=== PATIENT | male | born 1945 | race Caucasian/White ===

== ENCOUNTER 2017-06-20 13:36 | Outpatient (CLI) | payer OTHER, MEDICARE ==
[~2017-06-20] VITALS: Ht 182.9 cm; Wt 86.2 kg
[~2017-06-20 13:36] MED LIST: ACET-2267 PO; ASPI-586 PO; ATEN100T PO; ATOR80TA76 PO; CEPH-507 PO; CHOL400T29 PO; CYAN100088 PO; DIVA500T7 PO; DONE10TA41 PO; GABA-488 PO; HYDR-3870 PO; MEMA10TA22 PO; OMEP20CA12 PO; TERA5CAP3 PO
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
== END 2017-06-20 13:50 | disposition home or self-care (01) ==
LOC: PREOP 13:36
PROVIDERS: ATTEND Internal Medicine
DX: Z01.818 Encounter for other preprocedural examination (principal); R19.5 Other fecal abnormalities

== ENCOUNTER 2017-06-28 08:43 | Day surgery (SDC) | payer OTHER, MEDICARE ==
[~2017-06-28] VITALS: Ht 182.9 cm; Wt 86.2 kg
--- OUTSIDE RECORDS SUMMARY | 2017-06-28 08:47 | XMS REPORT ---
Author Author JUSTINO MELARA [facility] eClinicalWorks Address Unknown Phone Unavailable Care Team Providers Care Environmental Conservation Professor Name Role Phone JUSTINO MELARA CP Unavailable Allergies, Adverse Reactions, Alerts Substance Reaction Event Type N.K.D.A. Info Not Available Non Drug Allergy Problems Problem Type Condition Code Onset Dates Condition Status Problem Hypertension I10 Active Problem Dementia F03.90 Active Problem Hydrocele, unspecified hydrocele type N43.3 Active Problem Peripheral neuropathy G62.9 Active Assessment Hydrocele, unspecified hydrocele type N43.3 Active Medications Medication Code System Code Instructions Start Date End Date Status Dosage Cyanocobalamin [facility] [address]-28 1000 MCG Orally Once a day 1 tablet Vitamin D [facility] [address] 400 UNIT Orally Once a day 2 capsules Terazosin HCl [facility] [address]-76 5 MG Orally Once a day 1 capsule Donepezil Hydrochloride [facility] [address]-84 10 MG Orally Once a day 1 tablet at bedtime Atorvastatin Calcium [facility] [address]-27 80 MG Orally Once a day 1 tablet Atenolol [facility] [address]-93 100 MG Orally 2 times a day 1 tablet Memantine HCl [facility] [address]-51 10 MG Orally Twice a day 1 tablet Omeprazole Magnesium [facility] [address]10 20 MG Orally Once a day 2 tablets Gabapentin [facility] [address]-81 300 MG Orally Three times a day 1 capsule Aspir-81 [facility] [address]-68 81 MG Orally Once a day 1 tablet Divalproex Sodium ER [facility] [address]-79 500 MG Orally not defined Procedures Procedure Coding System Code Date Office Visit, Est Pt., Level 2 CPT-4 10930 Nov 04, 2015 Vital Signs Date/Time: Nov 04, 2015 Cardiac Monitoring Heart Rate 64 bpm Weight 171.0 lbs Height 71 in BMI 23.85 Index Blood Pressure Diastolic 65 mmHg Blood Pressure Systolic 126 mmHg Results No Known Results Summary Purpose eClinicalWorks Submission
--- OUTSIDE RECORDS SUMMARY | 2017-06-28 08:48 | XMS REPORT ---
Author Author JUSTINO MELARA [facility] Address [address] [place] [address] Care Team Providers Care Non Destructive Testing Scientist Name Role Phone JUSTINO MELARA Unavailable PROBLEMS Type Condition ICD9-CM Code ZYR29-NL Code Onset Dates Condition Status SNOMED Code Problem Hydrocele, unspecified hydrocele type N43.3 Active 34177639 Problem Hypertension I10 Active 91561956 Problem Dementia F03.90 Active 00271941 Problem Peripheral neuropathy G62.9 Active 97071221 ALLERGIES Substance Reaction Event Type Date Status N.K.D.A. Unknown Non Drug Allergy Mar, Unknown SOCIAL HISTORY No smoking Hx information available PLAN OF CARE Activity Details Follow Up annually for preventive care, sooner for chronic health maintenance , prn Reason: VITAL SIGNS Height 71 in 2016-03-30 Weight 179 lbs 2016-03-30 Temperature 97.8 degrees Fahrenheit 2016-03-30 Heart Rate 58 bpm 2016-03-30 Respiratory Rate 16 2016-03-30 BMI 24.96 kg/m2 2016-03-30 Blood pressure systolic 108 mmHg 2016-03-30 Blood pressure diastolic 62 mmHg 2016-03-30 MEDICATIONS Medication Instructions Dosage Frequency Start Date End Date Duration Status Atorvastatin Calcium 80 MG Orally Once a day 1 tablet 24h Active Atenolol 100 MG Orally 2 times a day 1 tablet 12h Active Cyanocobalamin 1000 MCG Orally Once a day 1 tablet 24h Active Omeprazole Magnesium 20 MG Orally Once a day 2 tablets 24h Active Aspir-81 81 MG Orally Once a day 1 tablet 24h Active Vitamin D 400 UNIT Orally Once a day 2 capsules 24h Active Gabapentin 300 MG Orally Three times a day 1 capsule 8h Active Donepezil Hydrochloride 10 MG Orally Once a day 1 tablet at bedtime 24h Active Divalproex Sodium ER 500 MG Active Terazosin HCl 5 MG Orally Once a day 1 capsule 24h Active Memantine HCl 10 MG Orally Twice a day 1 tablet 12h Active RESULTS No Results PROCEDURES Procedure Date Ordered Related Diagnosis Body Site [facility] P[facility] PPS INIT Mar 30, 2016 FLUZONE HIGH DOSE 65 AND UP 2016 Mar 30, 2016 SINGLE IMMUNIZATION ADMIN Mar 30, 2016 TDAP (BOOSTRIX) Mar 30, 2016 IMMUNIZATION ADMIN, EACH ADD (please include units) Mar 30, 2016 IMMUNIZATIONS Vaccine Route Administration Date Status TDAP (BOOSTRIX) IM Intramuscular Mar 30, 2016 Administered FLUZONE HIGH DOSE 65 AND UP 2015 IM Intramuscular Mar 30, 2016 Administered
[2017-06-28] MEDS ORDERED: 1/2 NS IV SOLUTION 1,000 ML IV STA (08:55)
[2017-06-28] MEDS ORDERED: LIDOCAINE JELLY 2% (XYLOCAINE) 5 ML TUBE MM PRN (09:00)
[2017-06-28 09:09] VITALS: BP 122/72
--- NOTE | 2017-06-28 09:22 | Pre-Op Note & Conscious Sedat ---
Pre-Operative Progress Note H&P Reviewed The H&P was reviewed, patient examined and no changes noted. Date H&P Reviewed: Jun 28, 2017 Time H&P Reviewed: 09:22 Conscious Sedation Pre-Proced ASA Class: 2 Airway Mallampati Classification: (quileute appropriate class) I. II. III, IV Lungs Heart ASA score ASA 1: a normal healthy patient ASA 2: a patient with a mild systemic disease (mid diabetes, controlled hypertension, obesity ASA 3: a patient with a severe systemic disease that limits activity (angina , COPD, prior Myocardial infarction) ASA 4: a patient with an incapacitating disease that is a constant threat to life (CHF, renal failure) ASA 5: a moribund patient not expected to survive 24 hrs. (ruptured aneurysm) ASA 6: a declared brain patient whose organs are being harvested. For emergent operations, add the letter E after the classification Grade 3 Sedation Plan: Analgesia, Amnesia, Plan communicated to team members, Discussed options with patient/fam, Discussed risks with patient/fam Note The patient is an appropriate candidate to undergo the planned procedure, sedation, and anesthesia. The patient immediately re-assessed prior to indication. KYLIE GUPTA MD Jun 28, 2017 09:22
[2017-06-28] MEDS ORDERED: D5 LR IV SOLUTION 1,000 ML IV SCH (09:30)
[2017-06-28] MEDS ORDERED: LIDOCAINE JELLY 2% (XYLOCAINE) 5 ML TUBE ONE (10:03)
[2017-06-28] MEDS ORDERED: MIDAZOLAM 2 MG/2 ML (VERSED) VIAL ONE ×2 (10:03→10:04)
[2017-06-28] MEDS ORDERED: fentaNYL INJECTION 100 MCG/2 ML AMP ONE (10:03)
[2017-06-28] MEDS: fentaNYL INJECTION 100 MCG/2 ML AMP IVP PRN ×2 (10:15→10:18)
[2017-06-28] MEDS: MIDAZOLAM 2 MG/2 ML (VERSED) VIAL IVP PRN ×2 (10:16→10:19)
[2017-06-28 11:10] VITALS: BP 112/78
[2017-06-28 11:33] VITALS: BP 117/75
[2017-06-28 11:40] VITALS: BP 117/75
--- NOTE | 2017-06-28 14:57 | OPERATIVE REPORT ---
DATE OF SERVICE: 06/28/2017 REQUESTING PHYSICIAN: Jose Wellington MD. INDICATION FOR THE PROCEDURE: Occult positive blood in the stool, strong family history for colon cancer. DESCRIPTION OF PROCEDURE: The patient was placed in left lateral decubitus position. Prior to undergoing colonoscopy, a digital rectal evaluation was performed. The prostate is moderately enlarged, anodular and nontender to digital inspection. No other abnormalities noted on digital inspection of the anal canal or distal rectal vault. The colonoscope was then inserted into the rectum under direct visualization advanced to the cecum. The cecum was identified by identification of the valve and cecal strap. Photographic documentation was obtained. Careful inspection was made as the colonoscope was withdrawn. FINDINGS: There is no evidence for internal or external hemorrhoids. Present in the distal rectum was a diminutive polyp. It was photographed and biopsied and ablated with no subsequent blood loss. The remainder of the rectum was unremarkable. One medium size proximal sigmoid diverticulum was present without evidence for diverticulitis. No other sigmoid colonic abnormalities were appreciated. The descending colon, splenic flexure, transverse colon, hepatic flexure, ascending colon and cecum were unremarkable. ASSESSMENT: One diminutive polyp was removed from the distal rectum and one moderate sized proximal sigmoid diverticulum was present. This was an otherwise normal colonoscopy to the cecum. As long as there are no surprises on histopathology report, would advocate consideration for repeat screening interval in 5 years if this patient's physical health remains good. Prostate to digital inspection is moderately enlarged, anodular and nontender. Job ID: [id number] DocumentID: [id number] Dictated Date: 06/28/2017 11:04:12 Service Technician Date: 06/28/2017 14:56:34 Dictated By: KYLIE GUPTA MD MTDD
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
== END 2017-06-28 11:45 | disposition home or self-care (01) ==
LOC: ENDO 08:43
PROVIDERS: ATTEND Internal Medicine
DX: K62.1 Rectal polyp (principal); K57.30 Diverticulosis of large intestine without perforation or abscess without bleeding; N40.0 Benign prostatic hyperplasia without lower urinary tract symptoms; Z80.0 Family history of malignant neoplasm of digestive organs; I10 Essential (primary) hypertension; E78.5 Hyperlipidemia, unspecified; I25.10 Atherosclerotic heart disease of native coronary artery without angina pectoris; Z87.820 Personal history of traumatic brain injury; Z79.899 Other long term (current) drug therapy; Z87.891 Personal history of nicotine dependence

== ENCOUNTER → 2018-03-11 | Outpatient (CLI) | payer MEDICARE, OTHER ==
[~2018-03-11] MED LIST changes: +DIVA-76 PO; -DIVA500T7 PO
--- NOTE | 2018-03-11 14:04 | Diagnostic Imaging Report ---
EXAMINATION: PA and lateral chest at 12:48. INDICATION: Foreign body check, prior to MRI. COMPARISON: There are no prior studies available for comparison. FINDINGS: By history the patient has a history of a foreign body. On this exam however there is no radiopaque foreign body identified. The heart size is within normal limits. The lungs are clear. There is no evidence for failure, pneumonia or for pleural effusion. The mediastinum is not widened. The osseous structures are intact. IMPRESSION: 1. There is no evidence for an acute cardiopulmonary abnormality. 2. There is no sign of a radiopaque foreign body either. Dictated by: Dictated on workstation # [id number]
--- NOTE | 2018-03-11 14:57 | Diagnostic Imaging Report ---
EXAMINATION: Right femur at 12:53 p.m. INDICATION: Foreign body check. AP and lateral views were obtained. FINDINGS: Reportedly, there is clinical concern regarding a metallic foreign body in the soft tissues. There is a 1.8 x 6.0 mm linear metallic foreign body in the soft tissues along the anterolateral aspect of the distal femur. This foreign body lies approximately 7 mm below the skin surface. No other radiopaque foreign body is identified. There is no fracture or acute bony abnormality noted. There is mild degenerative disease of the hip and knee joints. The soft tissues are unremarkable. IMPRESSION: 1. There is a small metallic foreign body in the soft tissues along the anterolateral aspect of the distal femur. 2. There is no acute bony abnormality identified. Dictated by: Dictated on workstation # [id number]
--- NOTE | 2018-03-11 15:02 | Diagnostic Imaging Report ---
PROCEDURE: MR imaging of the brain without contrast. TECHNIQUE: Multiplanar, multisequence MR imaging of the brain was performed without contrast. INDICATION: Prior brain surgery. Altered mental status. COMPARISON: There are no previous exams available for comparison. FINDINGS: There are postsurgical changes consistent with a prior bifrontal craniotomy. There is also a loculated collection of CSF along the medial aspect of the right frontal lobe. This measures 1.8 x 2.1 cm. There is also diffusely increased signal throughout the periventricular white matter of the right frontal lobe on the FLAIR axial series. Most likely this is due to encephalomalacia from the prior surgical procedure. There is no clear evidence for a mass in this area. No other intracranial masses identified. There is no abnormal signal arising from the brain on the diffusion series to indicate an acute abnormality. The left lateral ventricle is prominent and larger than the right. This could be a developmental variant. There are also areas of increased signal in the periventricular white matter bilaterally on the FLAIR series. These are nonspecific but may be related to encephalomalacia from microvascular ischemia. Cortical atrophy is also seen. The sella is not enlarged and the expected carotid flow voids are evident bilaterally. The orbits are symmetrical and within normal limits. The seventh and eighth nerve complexes are generally unremarkable. The sinuses are generally clear. There is a well-circumscribed 1.4 x 1.9 cm area of altered signal along the anterior margin of the left parotid gland. I suspect that this is a benign process and this may represent a cyst.. If further imaging is desired, then CT would be recommended. IMPRESSION: 1. There are postsurgical changes consistent with prior bifrontal craniotomy. There does appear to be encephalomalacia in the right frontal lobe and there is a small collection of CSF along the anteromedial aspect of the right frontal lobe. There is no mass in this area to suggest neoplasm. 2. There is no acute intracranial abnormality. In particular there is no evidence for an area of acute ischemia. 3. The benign-appearing lesion along the anterior aspect of the left parotid gland may represent a cyst. Recommendations as above. Dictated by: Dictated on workstation # [id number]
--- NOTE | 2018-03-11 17:47 | Diagnostic Imaging Report ---
EXAMINATION: Abdomen at 12:52 p.m. INDICATION: Foreign body check. Two supine views were obtained. There are no prior studies available for comparison. FINDINGS: Reportedly, there is clinical concern regarding a radiopaque foreign body. On this study, there is no radiopaque foreign body identified. There is gas in both the large and small bowel in a nonspecific fashion. There is no sign of a bowel obstruction. There is no mass, organomegaly, or pathological calcification evident. The osseous structures are intact. IMPRESSION: 1. There is no evidence for a radiopaque foreign body. 2. The bowel gas pattern is nonspecific. There is no acute abnormality noted. Dictated by: Dictated on workstation # [id number]
--- NOTE | 2018-03-11 17:49 | Diagnostic Imaging Report ---
EXAMINATION: Skull at 12:47 p.m. INDICATION: Metal check for MRI. AP and lateral views were obtained. There are no prior studies available for comparison. FINDINGS: There are orthopedic fixation devices overlying both frontal bones consistent with prior bifrontal craniotomy. There is no radiopaque foreign body overlying the orbits. The osseous structures are intact. The sinuses are generally clear. IMPRESSION: 1. There are postsurgical changes consistent with prior bifrontal craniotomy procedure. There is no radiopaque foreign body overlying the orbits, however. Dictated by: Dictated on workstation # [id number]
== END ==
LOC: RAD 10:33
PROVIDERS: ATTEND Internal Medicine
DX: Z01.818 Encounter for other preprocedural examination (principal); S70.351A Superficial foreign body, right thigh, initial encounter; K11.8 Other diseases of salivary glands; F03.90 Unspecified dementia, unspecified severity, without behavioral disturbance, psychotic disturbance, mood disturbance, and anxiety; Z98.890 Other specified postprocedural states
CPT/HCPCS: 70250; 70551; 71046; 73552; 74018

== ENCOUNTER 2018-08-01 10:34 | Emergency (ER) | payer MEDICARE, OTHER ==
[~2018-08-01] VITALS: Ht 188 cm; Wt 99.8 kg
--- NOTE | 2018-08-01 10:48 | ED Lower Extremity ---
General Chief Complaint: Lower Extremity Stated Complaint: SWELLING IN FEET Source: patient Exam Limitations: no limitations History of Present Illness Date Seen by Provider: August 01, 2018 Time Seen by Provider: 10:45 Initial Comments To ER per private vehicle accompanied by his son with reports of bilateral lower extremity swelling pain and itching. This is been ongoing for a couple of months, he has seen primary care through the [facility] and was given topical Lamisil without much improvement. There is rash anterolateral aspect of the ankles bilaterally. The Lamisil failed to make any improvement. He denies shortness of breath. Patient does have a history of frontal brain tumor with resection many years ago, does have dementia, lives at home by himself but with close involvement of his son. Onset: other (3-4 months) Severity: moderate Pain/Injury Location: bilateral foot, bilateral ankle Method of Injury: fell Modifying Factors: Worse With Movement Allergies and Home Medications Allergies Coded Allergies: No Known Drug Allergies (Verified , 06/28/17) Home Medications Acetaminophen 500 Mg Tablet, 500 MG PO Q4H PRN for PAIN, (Reported) Atenolol 100 Mg Tablet, 100 MG PO BID, (Reported) Atorvastatin Calcium 80 Mg Tablet, 80 MG PO HS, (Reported) Cholecalciferol (Vitamin D3) 400 Unit Tablet, 800 UNIT PO HS, (Reported) take 2 (400unit) tabs Cyanocobalamin (Vitamin B-12) 1,000 Mcg Tablet, 1,000 MCG PO DAILY, (Reported) Divalproex Sodium 500 Mg Tablet.dr, 500 MG PO HS, (Reported) Donepezil HCl 10 Mg Tablet, 10 MG PO HS, (Reported) Gabapentin 300 Mg Capsule, 300 MG PO TID, (Reported) Memantine HCl 10 Mg Tablet, 10 MG PO BID, (Reported) Omeprazole 20 Mg Capsule.dr, 40 MG PO DAILY, (Reported) take 2 (20mg) tabs Terazosin HCl 5 Mg Capsule, 5 MG PO HS, (Reported) Patient Home Medication List Home Medication List Reviewed: Yes Review of Systems Constitutional: see HPI EENTM: see HPI Respiratory: no symptoms reported Cardiovascular: no symptoms reported Genitourinary: no symptoms reported Musculoskeletal: no symptoms reported Skin: see HPI Psychiatric/Neurological: No Symptoms Reported Past Jzmrhbg-Hatrvv-Aocdxl Hx Patient Social History Recent Foreign Travel: No Contact w/Someone Who Travel: No Recent Hopitalizations: No Immunizations Up To Date Tetanus Booster (TDap): Unknown Date of Influenza Vaccine: Dec 30, 2016 Seasonal Allergies Seasonal Allergies: No Past Medical History Currently Using CPAP: No Currently Using BIPAP: No Hypertension Traumatic Brain Injury Reproductive Disorders: No Sexually Transmitted Disease: No HIV/AIDS: No Gastroesophageal Reflux Cataract Loss of Vision: Bilateral Physical Exam Vital Signs Vital Signs - First Documented 08/01/18 10:35 Temp 97.3 Pulse 72 Resp 18 B/P (MAP) 148/73 (98) Pulse Ox 96 Capillary Refill : Height, Weight, BMI Height: 6'0.00" Weight: 190lbs. 0.0oz. 86.823520iv; 25.8 BMI Method: General Appearance: WD/WN, no apparent distress HEENT: PERRL/EOMI, normal ENT inspection Respiratory: no respiratory distress, no accessory muscle use Hips: bilateral hip non-tender, bilateral hip normal inspection, bilateral hip normal range of motion Legs: bilateral leg non-tender, bilateral leg normal inspection, bilateral leg normal range of motion Knees: bilateral knee non-tender, bilateral knee normal inspection, bilateral knee normal range of motion Ankles: bilateral ankle swelling (there is 2+ pitting edema that extends proximally to the mid tibia. Around the anterolateral aspect of the ankles is some slight erythema with excoriation which could represent scabies versus pruritus with subsequent scratching from stasis dermatitis. Minimal erythema,) Feet: bilateral foot non-tender, bilateral foot normal inspection, bilateral foot normal range of motion Neurologic/Psychiatric: alert, normal mood/affect, oriented x 3 Skin: normal color, warm/dry, rash (as above, rash is confined to bilateral ankles. ) Progress/Results/Core Measures Results/Orders Lab Results Laboratory Tests Test 08/01/18 11:10 08/01/18 11:12 Range/Units White Blood Count 8.9 4.3-11.0 10^3/uL Red Blood Count 4.77 4.35-5.85 10^6/uL Hemoglobin 13.2 L 13.3-17.7 G/DL Hematocrit 39 L 40-54 % Mean Corpuscular Volume 82 80-99 FL Mean Corpuscular Hemoglobin 28 25-34 PG Mean Corpuscular Hemoglobin Concent 34 32-36 G/DL Red Cell Distribution Width 14.1 10.0-14.5 % Platelet Count 221 130-400 10^3/uL Mean Platelet Volume 9.7 7.4-10.4 FL Neutrophils (%) (Auto) 69 42-75 % Lymphocytes (%) (Auto) 19 12-44 % Monocytes (%) (Auto) 8 0-12 % Eosinophils (%) (Auto) 3 0-10 % Basophils (%) (Auto) 1 0-10 % Neutrophils # (Auto) 6.1 1.8-7.8 X 10^3 Lymphocytes # (Auto) 1.7 1.0-4.0 X 10^3 Monocytes # (Auto) 0.7 0.0-1.0 X 10^3 Eosinophils # (Auto) 0.3 0.0-0.3 10^3/uL Basophils # (Auto) 0.1 0.0-0.1 10^3/uL My Orders Orders - BRANDIE CHILEL PAPER BAG INSPECTOR Cbc With Automated Diff (08/01/18 10:36) Comprehensive Metabolic Panel (08/01/18 10:36) BNP (08/01/18 10:36) Thyroid Stimulating Hormone (08/01/18 10:36) Ua Culture If Indicated (08/01/18 10:36) Ed Iv/Invasive Line Start (08/01/18 10:36) Vital Signs/I&O 08/01/18 10:35 Temp 97.3 Pulse 72 Resp 18 B/P (MAP) 148/73 (98) Pulse Ox 96 Departure Impression Primary Impression: Venous stasis dermatitis of both lower extremities Disposition: 01 HOME, SELF-CARE Condition: Stable Departure-Patient Inst. Decision time for Depature: 11:30 Referrals: JUSTINO MELARA MD (PCP/Family) Primary Care Physician Patient Instructions: Wound Care Add. Discharge Instructions: 1. Elevate the leg as much as possible when you're not up walking. This will reduce the swelling. For the next 10 days apply the antibiotic ointment called mupirocin and the steroid called triamcinolone mixed both of these together and apply once or twice daily. Wash the skin gently with soap and water once daily. Once you've applied the cream, then wear the compression stockings. After the 10 days of using the antibiotic and the steroid cream then you may simply use Vaseline to keep the skin hydrated. All discharge instructions reviewed with patient and/or family. Voiced understanding. Scripts Mupirocin (Mupirocin) 22 Gm Oint...g. 1 GM TP BID for 10 Days, #1 TUBE Prov: BRANDIE CHILEL APRN 08/01/18 Triamcinolone Acetonide (Triamcinolone Acetonide 0.5% Cream) 15 Gm Cream..g. 1 GM TP BID for 10 Days, #1 TUBE 1 Refill Prov: BRANDIE CHILEL APRN 08/01/18 BRANDIE CHILEL APRN August 01, 2018 10:48
[2018-08-01 11:18] LABS: BASOPHILS # (AUTO) 0.1 10^3/uL (0.0-0.1); BASOPHILS % (AUTO) 1 % (0-10); EOSINOPHILS # (AUTO) 0.3 10^3/uL (0.0-0.3); EOSINOPHILS % (AUTO) 3 % (0-10); HEMATOCRIT 39 % (40-54); HEMOGLOBIN 13.2 G/DL (13.3-17.7); LYMPHOCYTES # (AUTO) 1.7 X 10^3 (1.0-4.0); LYMPHOCYTES % (AUTO) 19 % (12-44); MEAN CORPUSCULAR HEMOGLOBIN 28 PG (25-34); MEAN CORPUSCULAR HGB CONC 34 G/DL (32-36); MEAN CORPUSCULAR VOLUME 82 FL (80-99); MEAN PLATELET VOLUME 9.7 FL (7.4-10.4); MONOCYTES # (AUTO) 0.7 X 10^3 (0.0-1.0); MONOCYTES % (AUTO) 8 % (0-12); NEUTROPHILS # (AUTO) 6.1 X 10^3 (1.8-7.8); NEUTROPHILS % (AUTO) 69 % (42-75); PLATELET COUNT 221 10^3/uL (130-400); RED CELL DISTRIBUTION WIDTH 14.1 % (10.0-14.5); WHITE BLOOD COUNT 8.9 10^3/uL (4.3-11.0)
[2018-08-01 11:20] LABS: BILIRUBIN,URINE NEGATIVE (NEGATIVE); CLARITY,URINE CLEAR; COLOR,URINE YELLOW; GLUCOSE, URINE (UA) NEGATIVE (NEGATIVE); KETONES,URINE 1+ (NEGATIVE); LEUKOCYTE ESTERASE ,URINE NEGATIVE (NEGATIVE); NITRITE,URINE NEGATIVE (NEGATIVE); PH,URINE 6 (5-9); PROTEIN,URINE 1+ (NEGATIVE); UROBILINOGEN,URINE NORMAL (NORMAL)
[2018-08-01] MEDS ORDERED: MUPI22OI2 TP (11:34)
[2018-08-01] MEDS ORDERED: TRIA15CR TP (11:34)
[2018-08-01 11:38] LABS: ALANINE AMINOTRANSFERASE 11 U/L (0-55); ALBUMIN 3.9 GM/DL (3.2-4.5); ALKALINE PHOSPHATASE 84 U/L (40-136); BILIRUBIN,TOTAL 1.1 MG/DL (0.1-1.0); BUN/CREATININE RATIO 11; CALCIUM 8.9 MG/DL (8.5-10.1); CARBON DIOXIDE 25 MMOL/L (21-32); CHLORIDE 106 MMOL/L (98-107); CREATININE SERUM 0.84 MG/DL (0.60-1.30); GFR ESTIMATED > 60; GLUCOSE 89 MG/DL (70-105); POTASSIUM 3.5 MMOL/L (3.6-5.0); SODIUM 142 MMOL/L (135-145)
[2018-08-01 11:50] LABS: BACTERIA,URINE NEGATIVE /HPF; RBC,URINE RARE /HPF; WBC,URINE RARE /HPF
[2018-08-01 12:16] VITALS: BP 148/73
--- NOTE | 2018-08-01 12:18 | NUR ---
WILMAR CREWS PUT ON PT
== END 2018-08-01 12:18 | disposition home or self-care (01) ==
LOC: EDUNIT# 10:34 → ER 10:35
DX: I87.8 Other specified disorders of veins (principal); I10 Essential (primary) hypertension; K21.9 Gastro-esophageal reflux disease without esophagitis; Z87.820 Personal history of traumatic brain injury
CPT/HCPCS: 36415; 80053; 81000; 83880; 84443; 85025

== ENCOUNTER 2019-11-21 03:26 | Emergency (ER) | payer MEDICARE, OTHER ==
[~2019-11-21] VITALS: Ht 188 cm; Wt 99.0 kg
[~2019-11-21 03:26] MED LIST changes: -MEMA10TA22 PO; +MEMA10TA57 PO; +MUPI22OI2 TP; -OMEP20CA12 PO; +OMEP20CA18 PO; +TRIA15CR TP
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
[2019-11-21] MEDS ORDERED: TETANUS,DIPTH,PERTUSS P/F (BOOSTRIX) 0.5 ML VIAL IM ONE (03:45)
[2019-11-21 04:51] VITALS: BP 152/86
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
--- NOTE | 2019-11-21 07:14 | Diagnostic Imaging Report ---
HISTORY: Pelvic pain. Fall. COMPARISON: None TECHNIQUE: Single frontal view of the pelvis FINDINGS: The pelvis is slightly rotated to the right. Linear lucency through the right femoral neck is thought to represent a skinfold. No acute fracture is seen on this single view of the pelvis. There are degenerative changes in the bilateral hips and sacroiliac joints. Alignment appears normal with the femoral heads well-seated in the acetabula bilaterally. IMPRESSION: 1. No acute osseous abnormalities seen on this single view of the pelvis. Dictated by: Dictated on workstation # [id number]
== END 2019-11-21 04:56 ==
LOC: EDUNIT# 03:26 → ER 03:28
DX: S09.90XA Unspecified injury of head, initial encounter (principal); S01.81XA Laceration without foreign body of other part of head, initial encounter; S16.1XXA Strain of muscle, fascia and tendon at neck level, initial encounter; F03.90 Unspecified dementia, unspecified severity, without behavioral disturbance, psychotic disturbance, mood disturbance, and anxiety; I10 Essential (primary) hypertension; K21.9 Gastro-esophageal reflux disease without esophagitis; Z23 Encounter for immunization; Z79.82 Long term (current) use of aspirin; Z87.820 Personal history of traumatic brain injury; W19.XXXA Unspecified fall, initial encounter; Y92.129 Unspecified place in nursing home as the place of occurrence of the external cause
CPT/HCPCS: 12013; 70450; 70486; 72125; 72170; 90715

== ENCOUNTER 2019-12-18 12:14 | Emergency (ER) | payer MEDICARE, OTHER ==
[~2019-12-18] VITALS: Ht 162.6 cm; Wt 68.2 kg
[2019-12-18] MEDS ORDERED: NS IV 1000 ML 1,000 ML IV SCH (12:30)
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
[2019-12-18 12:37] LABS: BASOPHILS % (AUTO) 0 % (0-10); EOSINOPHILS % (AUTO) 0 % (0-10); HEMATOCRIT 34 % (40-54); HEMOGLOBIN 11.4 G/DL (13.3-17.7); LYMPHOCYTES % (AUTO) 5 % (12-44); MEAN CORPUSCULAR HEMOGLOBIN 27 PG (25-34); MEAN CORPUSCULAR HGB CONC 33 G/DL (32-36); MEAN CORPUSCULAR VOLUME 82 FL (80-99); MEAN PLATELET VOLUME 10.1 FL (7.4-10.4); MONOCYTES # (AUTO) 1.9 X 10^3 (0.0-1.0); MONOCYTES % (AUTO) 9 % (0-12); NEUTROPHILS % (AUTO) 87 % (42-75); PLATELET COUNT 228 10^3/uL (130-400)
[2019-12-18 12:50] LABS: ALBUMIN 3.4 GM/DL (3.2-4.5); INR 1.3 (0.8-1.4); POTASSIUM 2.7 MMOL/L (3.6-5.0); PROTHROMBIN TIME PATIENT 16.8 SEC (12.2-14.7)
[2019-12-18 12:51] LABS: CALCIUM 7.8 MG/DL (8.5-10.1)
[2019-12-18 12:53] LABS: TOTAL PROTEIN 6.8 GM/DL (6.4-8.2)
[2019-12-18 12:56] LABS: CREATININE SERUM 1.32 MG/DL (0.60-1.30)
--- NOTE | 2019-12-18 12:58 | Diagnostic Imaging Report ---
INDICATION: Sepsis. Frontal chest obtained at 12:46 p.m. and compared to 03/11/2018 FINDINGS: Heart and mediastinal silhouette are normal in appearance. Lungs show no focal infiltrate. There is no pneumothorax or pleural fluid. IMPRESSION: No acute process in the chest. Dictated by: Dictated on workstation # [id number]
[2019-12-18] MEDS ORDERED: LORazepam INJ 2 MG/ML (ATIVAN) VIAL IVP PRN (13:00)
[2019-12-18 13:02] LABS: EOSINOPHILS % (MANUAL) 1 %; LYMPHOCYTES % (MANUAL) 6 %; MONOCYTES % (MANUAL) 4 %; NEUTROPHILS % (MANUAL) 89 %; RBC MORPH NORMAL
[2019-12-18 13:03] LABS: BILIRUBIN,URINE 1+ (NEGATIVE); CLARITY,URINE CLEAR; COLOR,URINE YELLOW; GLUCOSE, URINE (UA) NEGATIVE (NEGATIVE); KETONES,URINE NEGATIVE (NEGATIVE); LEUKOCYTE ESTERASE ,URINE NEGATIVE (NEGATIVE); NITRITE,URINE NEGATIVE (NEGATIVE); PROTEIN,URINE 2+ (NEGATIVE)
[2019-12-18 13:31] LABS: AMORPHOUS SEDIMENT,UR FEW AMOR URATES /LPF; BACTERIA,URINE NEGATIVE /HPF; RBC,URINE 0-2 /HPF
[2019-12-18] MEDS ORDERED: CEFEPIME INJECTION 1,000 MG in WATER (STERILE) FOR INJECTION 10 ML IV ONE (13:45)
[2019-12-18] MEDS ORDERED: LACTATED RINGERS 1,000 ML IV SCH (14:00)
[2019-12-18] MEDS ORDERED: MUPI22OI2 TP ×2 (14:06→14:11)
[2019-12-18] MEDS ORDERED: NYST15CR TP ×2 (14:06→14:11)
[2019-12-18] MEDS ORDERED: KCL 10 MEQ TAB (MICRO K) PO ONE (15:00)
[2019-12-18] MEDS ORDERED: NS (IVPB) 250 ML ONE (15:06)
[2019-12-18] MEDS ORDERED: POTASSIUM CL 10MEQ/50ML IVPB 50 ML IV ONE (15:15)
[2019-12-18 16:30] VITALS: BP 135/73
== END 2019-12-18 16:30 | disposition home or self-care (01) ==
LOC: EDUNIT# 12:14 → ER 12:15
DX: N48.1 Balanitis (principal); D72.829 Elevated white blood cell count, unspecified; E86.0 Dehydration; I10 Essential (primary) hypertension; E78.00 Pure hypercholesterolemia, unspecified; F03.90 Unspecified dementia, unspecified severity, without behavioral disturbance, psychotic disturbance, mood disturbance, and anxiety; K21.9 Gastro-esophageal reflux disease without esophagitis; Z87.820 Personal history of traumatic brain injury
CPT/HCPCS: 36415; 51702; 71045; 80053; 81000; 83605; 85007; 85027; 85610; 87040

== ENCOUNTER 2021-11-20 17:07 | Inpatient (IN) | payer MEDICARE ==
[~2021-11-20] VITALS: Ht 180 cm; Wt 56.1 kg
[~2021-11-20 17:07] MED LIST changes: +NYST15CR TP; +TERA5CAP10 PO; -TERA5CAP3 PO
[2021-11-20] MEDS ORDERED: LIDOCAINE UROJET 2% GEL 10 ML PKG TOP ONE (17:30)
[2021-11-20] MEDS ORDERED: LACTATED RINGERS 1,000 ML IV SCH ×2 (17:45→19:45)
[2021-11-20 17:51] LABS: BASOPHILS # (AUTO) 0.1 10^3/uL (0.0-0.1); BASOPHILS % (AUTO) 0 % (0-10); EOSINOPHILS % (AUTO) 0 % (0-10); HEMATOCRIT 42 % (40-54); HEMOGLOBIN 12.9 g/dL (13.3-17.7); LYMPHOCYTES # (AUTO) 1.8 10^3/uL (1.0-4.0); LYMPHOCYTES % (AUTO) 15 % (12-44); MEAN CORPUSCULAR HEMOGLOBIN 29 pg (25-34); MEAN CORPUSCULAR HGB CONC 31 g/dL (32-36); MEAN CORPUSCULAR VOLUME 93 fL (80-99); MONOCYTES # (AUTO) 0.9 10^3/uL (0.0-1.0); MONOCYTES % (AUTO) 7 % (0-12); NEUTROPHILS # (AUTO) 9.6 10^3/uL (1.8-7.8); NEUTROPHILS % (AUTO) 78 % (42-75); PLATELET COUNT 197 10^3/uL (130-400); WHITE BLOOD COUNT 12.4 10^3/uL (4.3-11.0)
[2021-11-20 17:59] LABS: BILIRUBIN,URINE NEGATIVE (NEGATIVE); CLARITY,URINE CLEAR; COLOR,URINE YELLOW; GLUCOSE, URINE (UA) NEGATIVE (NEGATIVE); KETONES,URINE NEGATIVE (NEGATIVE); LEUKOCYTE ESTERASE ,URINE NEGATIVE (NEGATIVE); NITRITE,URINE NEGATIVE (NEGATIVE); PROTEIN,URINE NEGATIVE (NEGATIVE)
[2021-11-20 18:01] LABS: INR 1.1 (0.8-1.4)
[2021-11-20 18:06] LABS: BACTERIA,URINE NEGATIVE /HPF; SQUAMOUS EPITHELIAL CELL,UR RARE /HPF; WBC,URINE 0-2 /HPF
[2021-11-20 18:07] LABS: ALBUMIN 3.5 GM/DL (3.2-4.5)
[2021-11-20 18:08] LABS: CALCIUM 9.5 MG/DL (8.5-10.1)
[2021-11-20 18:10] LABS: TOTAL PROTEIN 6.9 GM/DL (6.4-8.2)
[2021-11-20 18:11] LABS: BILIRUBIN,TOTAL 0.9 MG/DL (0.1-1.0)
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
[2021-11-20 18:13] LABS: CREATININE SERUM 1.02 MG/DL (0.60-1.30)
--- NOTE | 2021-11-20 18:41 | Diagnostic Imaging Report ---
EXAMINATION: Chest 1 view HISTORY: weakness COMPARISON: 12/18/2019. FINDINGS: The lungs are clear without edema or pneumonia. No pleural effusion or pneumothorax. Heart size is normal. Lucency in the left upper quadrant may represent gas in the stomach. IMPRESSION: 1. Lucency in the left upper quadrant may represent gas in the stomach versus free air. Dedicated two-view abdomen or abdomen and pelvis CT recommended. Dictated by: Dictated on workstation # [id number]
--- NOTE | 2021-11-20 19:18 | Diagnostic Imaging Report ---
PROCEDURE: CT abdomen and pelvis without contrast. TECHNIQUE: Multiple contiguous axial images were obtained through the abdomen and pelvis without the use of intravenous contrast. Auto Exposure Controls were utilized during the CT exam to meet ALARA standards for radiation dose reduction. INDICATION: 76-year-old male, non-verbal, decreased appetite. Concern for potential free air on chest radiograph. CORRELATION STUDY: Chest radiograph 11/20/2021. FINDINGS: Overall assessment is limited given lack of contrast, significant gastrointestinal tract distention and generalized paucity of intra-abdominal fat. Lung bases are clear. Heart size is within normal limits. There is no evidence for free intraperitoneal air on CT imaging. There is rather significant gas-distention throughout the majority of the gastrointestinal tract. There is a significant amount of stool retention throughout the colon with distal colonic fecal loading and suspect impaction. This stool volume measures 8.6 x 7.5 x 10.7 cm. No definitive abdominal ascites. Unenhanced liver, gallbladder, spleen, pancreas, adrenal glands, and kidneys appearing generally unremarkable. Dense aortoiliac wall calcification, nonaneurysmal. Bladder is distended but displaced anteriorly and superiorly owing to the rather significant distal colonic stool loading. Osseous structures demonstrate mild rightward curvature of the lumbar spine. No acute findings. IMPRESSION: 1. No evidence for free intraperitoneal air on CT imaging. 2. Constipation with distal colonic fecal impaction. Dictated by: Dictated on workstation # [id number]
--- NOTE | 2021-11-20 20:14 | Tele-ICU Consult ---
History of Present Illness History of Present Illness Date Seen by Provider: Nov 20, 2021 Time Seen by Provider: 20:08 Date of Admission ED COURSE: PT PRESENTED WITH [facility] RN AT BEDSIDE. SHE STATES PT IS "LATHARGIC". [facility] RN REPORTS PT STOPPED EATING, WALKING AND TALKING 11/17/21. SNF RN STATES "THIS IS NOT LIKE HIM AT ALL." PT IS NOT RESPONDING TO VERBAL STIMULI AT THIS TIME. PT HAS EYES CLOSED AND HEAD DOWN NOT INTERACTING WITH THIS RN OR NURING HOME RN AT THIS TIME. PT HX OF DEMENTIA CT abdomen showed fecal impaction Na 164; LR 2l given since pt was hypotensive Lactic acid 2.1: cxray negative for infiltrate/ ua negative Allergies and Home Medications Allergies Coded Allergies: No Known Drug Allergies (Verified , 06/28/17) Home Medications Acetaminophen 500 Mg Tablet, 500 MG PO Q4H PRN for PAIN, (Reported) Atenolol 100 Mg Tablet, 100 MG PO BID, (Reported) Atorvastatin Calcium 80 Mg Tablet, 80 MG PO HS, (Reported) Cholecalciferol (Vitamin D3) 400 Unit Tablet, 800 UNIT PO HS, (Reported) take 2 (400unit) tabs Cyanocobalamin (Vitamin B-12) 1,000 Mcg Tablet, 1,000 MCG PO DAILY, (Reported) Divalproex Sodium 500 Mg Tablet.dr, 500 MG PO HS, (Reported) Donepezil HCl 10 Mg Tablet, 10 MG PO HS, (Reported) Gabapentin 300 Mg Capsule, 300 MG PO TID, (Reported) Memantine HCl 10 Mg Tablet, 10 MG PO BID, (Reported) Mupirocin 22 Gm Oint...g., 1 GM TP BID Prescribed by: BRANDIE CHILEL on 08/01/18 1134 Mupirocin 22 Gm Oint...g., 1 GM TP BID Prescribed by: BRANDIE CHILEL on 12/18/19 1406 Mupirocin 22 Gm Oint...g., 1 GM TP TID Prescribed by: BRANDIE CHILEL on 12/18/19 1411 Nystatin 15 Gm Cream..g., 15 GM TP TID Prescribed by: BRANDIE CHILEL on 12/18/19 1406 Nystatin 15 Gm Cream..g., 1 GM TP TID Prescribed by: BRANDIE CHILEL on 12/18/19 1411 Omeprazole 20 Mg Capsule.dr, 40 MG PO DAILY, (Reported) take 2 (20mg) tabs Terazosin HCl 5 Mg Capsule, 5 MG PO HS, (Reported) Triamcinolone Acetonide 15 Gm Cream..g., 1 GM TP BID Prescribed by: BRANDIE CHILEL on 08/01/18 1134 Past Medical/Social/Family Hx Patient Social History Tobacco Use?: No Substance use?: No Alcohol Use?: No Pt stated abuse/neglect: No Immunizations Up To Date Tetanus Booster (TDap): Unknown Current Status Communicates: Verbally Primary Language: [place] Preferred Spoken Language: [place] Past Medical History Dementia Review of Systems Constitutional: see HPI Focused Exam Lactate Level 11/20/21 17:43: Lactic Acid Level 2.10*H Height, Weight, BMI Height: 6'2.00" Weight: 220lbs. 0.0oz. 99.824032ww; 17.00 BMI Method:Stated Lactic Acid Level Laboratory Tests Test 11/20/21 17:43 Lactic Acid Level 2.10 MMOL/L (0.50-2.00) *H Exam Exam Patient acknowledged, consented, and participated in this virtual visit which was conducted using real time audio/video Vital Signs Date Time Temp Pulse Resp B/P (MAP) Pulse Ox O2 Delivery O2 Flow Rate FiO2 11/20/21 17:20 36.4 72 16 78/53 (61) 99 Room Air Height & Weight Height: 6'2.00" Weight: 220lbs. 0.0oz. 99.541780wv; 17.00 BMI Method:Stated General Appearance: No Apparent Distress, Chronically ill, Thin (Chronically ill), Other (Initially blood pressure 78/50. ) Neck: Full Range of Motion, Normal Inspection Respiratory: No Accessory Muscle Use, No Respiratory Distress Cardiovascular: Regular Rate, Rhythm, Normal Peripheral Pulses Capillary Refill: Less Than 3 Seconds Extremity: Normal Capillary Refill, Normal Inspection Neurologic/Psychiatric: Other (keeps eyes closed, does not talk. ) Skin: Normal Color, Warm/Dry Results Lab Laboratory Tests 11/20/21 17:43 Assessment/Plan Assessment/Plan A/P 1. Dehydration: very probable related to poor oral intake -we will repeat bmp/ review hemodynamics and decide iso vs hypotonic solution for replacement of water loss. If pt is hypotensive we will continue isotonic solution, if patient is normotonic we will proceed with hypotonic solution -lactic acid to be repeated: could be increased due to hypovolemia.Still we will send blood cultures and clinically observe. 2. DVT prophylaxis IDALIA HARGROVE MD Nov 20, 2021 20:14
[2021-11-20] MEDS ORDERED: ENOXAPARIN 40 MG/0.4 ML (LOVENOX) SYR SC SCH (20:15)
--- NOTE | 2021-11-20 20:35 | Diagnostic Imaging Report ---
INDICATION: POST CENTRAL LINE PLACEMENT. TECHNIQUE: Single view chest 8:14 PM. CORRELATION STUDY: 11/20/2021 FINDINGS: Right IJ central line has been placed with the tip projected over the SVC. Heart size, mediastinum and vasculature overall appear unchanged and unremarkable. Question minimal atelectasis at the right lung base. No appreciable pneumothorax. IMPRESSION: 1. Right IJ central line has been placed. No evidence for post procedure complication. Dictated by: Dictated on workstation # [id number]
[2021-11-20] MEDS ORDERED: ONDANSETRON 4 MG/2 ML (SDV) Z0FRAN IV PRN (21:00)
[2021-11-20] MEDS ORDERED: ACETAMINOPHEN 325 MG TABLET PO PRN (21:00)
[2021-11-20] MEDS ORDERED: LACTULOSE SYRUP 10GM/15ML (ENULOSE) 30ML UDC PO PRN (21:00)
[2021-11-20] MEDS ORDERED: diphenhydrAMINE 50 MG/ML INJ (BENADRYL) IVP PRN (21:00)
[2021-11-20] MEDS ORDERED: CALCIUM CARBONATE 500 MG (TUMS) TAB.CHEW PO PRN (21:00)
[2021-11-20] MEDS ORDERED: WATER (STERILE) FOR INJ 10 ML BTL INJ SCH (21:00)
[2021-11-20] MEDS ORDERED: MILK OF MAGNESIA 400 MG/5 ML 30 ML UDC PO PRN (21:00)
[2021-11-20] MEDS ORDERED: ANTACID SUSP 30 ML UDC (MYLANTA) PO PRN (21:00)
[2021-11-20] MEDS ORDERED: BISACODYL 10 MG SUPP (DULCOLAX) PR PRN (21:00)
[2021-11-20] MEDS ORDERED: ONDANSETRON 4 MG (ZOFRAN) ORAL DISSOLVE TAB PO PRN (21:00)
[2021-11-20] MEDS ORDERED: diphenhydrAMINE 25 MG TAB (BENADRYL) PO PRN (21:00)
[2021-11-20] MEDS ORDERED: metroNIDAZOLE 500MG/100ML IVPB 100 ML IV ONE (21:00)
[2021-11-20] MEDS ORDERED: CEFEPIME INJECTION 1,000 MG in NS (IVPB) 50 ML IV ONE (21:00)
[2021-11-20] MEDS ORDERED: NS IV 500 ML 500 ML IV PRN (21:00)
[2021-11-20] MEDS ORDERED: MELATONIN 3 MG TABLET PO PRN (21:00)
[2021-11-20] MEDS ORDERED: morphine INJ 4 MG/ML 1 ML (VIAL/SYRINGE) IV PRN (21:00)
[2021-11-20] MEDS ORDERED: ZIPRASIDONE 20 MG INJ (GEODON) VIAL IM PRN (21:00)
[2021-11-20] MEDS ORDERED: polyethylene glycoL POWDER 17 GM (MIRALAX) PACK PO PRN (21:00)
[2021-11-20 21:54] LABS: CALCIUM 8.8 MG/DL (8.5-10.1)
[2021-11-20] MEDS: NS IV 1000 ML 1,000 ML IV SCH (21:57)
[2021-11-20] MEDS: ENOXAPARIN INJECTION 30 MG/0.3 ML SYR SC SCH (21:57)
[2021-11-20] MEDS: SENNOSIDES 8.6 MG (SENOKOT) TAB PO SCH (21:57)
[2021-11-20] MEDS: DOCUSATE SODIUM 100 MG (COLACE) CAP PO SCH (21:57)
[2021-11-20 21:58] LABS: CREATININE SERUM 0.82 MG/DL (0.60-1.30)
[2021-11-20 23:02] VITALS: BP 121/51
[2021-11-20] MEDS ORDERED: RT-ALBUTEROL SULF 2.5 MG/3 ML PRE-MIX VIAL INH PRN (23:15)
[2021-11-21 02:05] LABS: POTASSIUM 3.6 MMOL/L (3.6-5.0)
[2021-11-21 02:07] LABS: CALCIUM 8.5 MG/DL (8.5-10.1)
[2021-11-21 02:11] LABS: CREATININE SERUM 0.81 MG/DL (0.60-1.30)
[2021-11-21] MEDS: NS IV 1000 ML 1,000 ML IV SCH ×2 (02:53→08:55)
[2021-11-21 04:04] LABS: BASOPHILS # (AUTO) 0.1 10^3/uL (0.0-0.1); BASOPHILS % (AUTO) 1 % (0-10); EOSINOPHILS # (AUTO) 0.1 10^3/uL (0.0-0.3); EOSINOPHILS % (AUTO) 1 % (0-10); HEMATOCRIT 34 % (40-54); HEMOGLOBIN 10.5 g/dL (13.3-17.7); LYMPHOCYTES # (AUTO) 1.4 10^3/uL (1.0-4.0); LYMPHOCYTES % (AUTO) 11 % (12-44); MEAN CORPUSCULAR HEMOGLOBIN 29 pg (25-34); MEAN CORPUSCULAR HGB CONC 31 g/dL (32-36); MEAN CORPUSCULAR VOLUME 92 fL (80-99); MEAN PLATELET VOLUME 11.1 fL (9.0-12.2); MONOCYTES # (AUTO) 0.9 10^3/uL (0.0-1.0); MONOCYTES % (AUTO) 7 % (0-12); NEUTROPHILS # (AUTO) 10.2 10^3/uL (1.8-7.8); NEUTROPHILS % (AUTO) 81 % (42-75); PLATELET COUNT 167 10^3/uL (130-400); WHITE BLOOD COUNT 12.6 10^3/uL (4.3-11.0)
[2021-11-21 04:18] LABS: ALBUMIN 2.8 GM/DL (3.2-4.5); POTASSIUM 3.4 MMOL/L (3.6-5.0)
[2021-11-21 04:20] LABS: CALCIUM 8.3 MG/DL (8.5-10.1)
[2021-11-21 04:21] LABS: TOTAL PROTEIN 5.5 GM/DL (6.4-8.2)
[2021-11-21 04:23] LABS: BILIRUBIN,TOTAL 0.8 MG/DL (0.1-1.0)
[2021-11-21 04:24] LABS: PHOSPHORUS 2.5 MG/DL (2.3-4.7)
[2021-11-21 04:25] LABS: CREATININE SERUM 0.76 MG/DL (0.60-1.30)
[2021-11-21 04:27] LABS: MAGNESIUM 1.9 MG/DL (1.6-2.4)
[2021-11-21] MEDS: POTASSIUM CL 10MEQ/50ML IVPB 50 ML IV SCH (04:36)
[2021-11-21] MEDS ORDERED: KCL 20 MEQ TAB (K-DUR) PO SCH (06:00)
[2021-11-21] MEDS ORDERED: POTASSIUM CL 10MEQ/50ML IVPB 50 ML IV SCH (06:00)
[2021-11-21] MEDS ORDERED: MAGNESIUM 1 GM/100 ML IVPB 100 ML IV SCH (06:00)
[2021-11-21] MEDS: DOCUSATE SODIUM 100 MG (COLACE) CAP PO SCH ×2 (08:55→20:48)
[2021-11-21] MEDS: SENNOSIDES 8.6 MG (SENOKOT) TAB PO SCH ×2 (08:55→20:48)
--- NOTE | 2021-11-21 09:44 | Physical Therapy Evaluation ---
PT Evaluation-General Medical Diagnosis Admission Date Nov 20, 2021 at 19:41 Medical Diagnosis: hypernatremia/hypotension Onset Date: Nov 20, 2021 Therapy Diagnosis Therapy Diagnosis: debility Height/Weight Height (Feet): 6 Height (Inches): 2.00 Weight (Pounds): 220 Weight (Ounces): 0.0 Precautions Precautions/Isolations: Fall Prevention, Standard Precautions Referral Physician: Clayton Reason for Referral: Evaluation/Treatment Medical History Pertinent Medical History: Dementia, HTN, TBI Current History ER via [place] RN secondary to decreased appetite and ambulation and increased lethargy Reviewed History: Yes Social History Home: Longterm Prior Prior Level of Function SCALE: Activities may be completed with or without assistive devices. 0-Upwrnhydte-itlphnp completes the activity by him/herself with no assistance from a helper. 5-Set-up or Clean-up Assistance-helper sets up or cleans up; patient completes activity. [place] assists only prior to or following the activity. 4-Supervision or Touching Assistance-helper provides verbal cues and/or justino john/steadying and/or contact guard assistance as patient completes activity. Assistance may be provided throughout the activity or intermittently. 3-Partial/Moderate Assistance-helper does LESS THAN HALF the effort. [place] lifts, holds or supports trunk or limbs, but provides less than half the effort. 2-Substantial/Maximal Assistance-helper does MORE THAN HALF the effort. [place] lifts or holds trunk or limbs and provides more than half the effort. 1-Jznjaswbb-mryimh does ALL the effort. Patient does none of the effort to complete the activity. Or, the assistance of 2 or more helpers is required for the patient to complete the activity. If activity was not attempted, code reason: 7-Patient Refused. 9-Not Applicable-not attempted and the patient did not perform the activity before the current illness, exacerbation or injury. 10-Not Attempted due to Environmental Limitations-(lack of equipment, weather restraints, etc.). 88-Not Attempted due to Medical Conditions or Safety Concerns. Bed Mobility: 4 Transfers (B,C,W/C): 4 Gait: 4 Indoor Mobility (Ambulation): Needed Some Help Prior Devices Use: None PT Evaluation-Current Subjective Patient has advanced dementia Objective Patient Orientation: Confused Attachments: [place] Catheter, IV ROM/Strength ROM Lower Extremities bilateral LE WFL Strength Lower Extremities 3/5 grossly bilateral LE all planes (no formal testing due to inability to follow simple direction) Transfers Sit to Lying (QC): 3 Lying to Sitting/Side of Bed(Q: 3 Sit to Stand (QC): 3 Gait Mode of Locomotion: Walk Anticipated Mode of Locomotion: Walk Walk 10 feet (QC): 3 Walk 50 ft with 2 Turns(QC): 3 Walk 150 ft (QC): 3 Distance: 200' Gait Assistive Device: None Comments/Gait Description min to mod assist with use of gait belt to assist to direct patient due to advanced dementia Balance Sitting Static: Fair Sitting Dynamic: Fair Standing Static: Fair Standing Dynamic: Fair Assessment/Needs Patient will be seen short term by skilled PT to address functional mobility to ensure safe return to [place] at maximum LOF. Rehab Potential: Guarded PT [employer] Goals Fpc Goals PT Fpc Goals Time Frame: Dec 02, 2021 Roll Left & Right (QC): 4 Sit to Lying (QC): 4 Lying-Sitting on Side/Bed(QC): 4 Sit to Stand (QC): 4 Chair/Aoq-yg-Lazdq Xfer(QC): 4 Toilet Transfer (QC): 4 Walk 10 feet (QC): 4 Walk 50ft with 2 Turns (QC): 4 Walk 150 ft (QC): 4 PT Plan Problem List Problem List: Safety, Balance, Gait, Transfer Treatment/Plan Treatment Plan: Continue Plan of Care Treatment Plan: Bed Mobility, Functional Activity Parminder, Functional Strength, Gait, Safety, Transfers Treatment Duration: Dec 02, 2021 Frequency: 5 times per week Estimated Hrs Per Day: .25 hour per day Time/GCodes Time In: 820 Time Out: 834 Total Billed Treatment Time: 14 Total Billed Treatment [address] [facility] 14 min DALE ALVAREZ PT Nov 21, 2021 09:44
--- NOTE | 2021-11-21 10:28 | Tele-ICU Progress Note ---
Subjective Date Seen by a Provider: Nov 21, 2021 Time Seen by a Provider: 10:28 Subjective/Events-last exam (Tele-ICU Physician , Progress Note ) Available chart/ vitals / labs / Images reviewed Video assessment done using teleICU camera, rest of exam as per RN Discussed with RN Events overnight : Afebrile hemodynamically stable Respiratory - ra I/O = Drips: ns 175 Pressors- no Consultants: Hospital course: (11/20) 76y M from ED with hypernatremia and hypotension due to dehydration. With lethargy. CVC placed and pt. on 2nd L IVF. Pt. from [facility] and has not been eating/drinking for several days. A/P Dehydration: hypernatremia -very probable related to poor oral intake -fstable bmp/ review hemodynamics , change to 1/2 ns ( patien had Ok PO intake this am Possible sepsis suspected on admission -blood cultures done , pending - unlcear source cefepime and flagyl empirically x1 given . @10 pm , as per PCP / ? to follow Anemia - delutional Lines : CVC placed 11/20/21 r IJ , (Central Line Necessity Reviewed) [place]iz[place]: OG: Nutrition: Analgesia: Anxiety/ delirium VTE Prophylaxis: Stress Ulcer Prophylaxis: Plans in collaboration with bedside consultants and IM MDs. Discussed with RN to reach out if any questions or concerns A total of 20 minutes of critical care time was devoted to this patient today, required to treat and/or prevent further deterioration of critical care condition ( as above Sepsis Event Evaluation Height, Weight, BMI Height: 6'2.00" Weight: 220lbs. 0.0oz. 99.918761ik; 16.85 BMI Method:Stated Focused Exam Lactate Level 11/20/21 17:43: Lactic Acid Level 2.10*H 11/20/21 21:22: Lactic Acid Level 1.09 Exam Exam Patient acknowledged, consented, and participated in this virtual visit which was conducted using real time audio/video Vital Signs Date Time Temp Pulse Resp B/P (MAP) Pulse Ox O2 Delivery O2 Flow Rate FiO2 11/21/21 09:00 89 8 101/55 97 Room Air 11/21/21 08:00 94 Room Air 11/21/21 08:00 69 7 107/61 97 Room Air 11/21/21 07:30 36.2 11/21/21 07:17 72 11/21/21 07:00 68 10 107/67 96 Room Air 11/21/21 06:00 72 8 98/56 94 Room Air 11/21/21 05:00 78 110/62 95 Room Air 11/21/21 04:00 72 12 105/53 96 Room Air 11/21/21 03:45 94 Room Air 11/21/21 03:45 36.7 70 22 116/62 94 Room Air 11/21/21 03:20 70 12 104/58 94 Room Air 11/21/21 02:00 68 31 102/52 94 Room Air 11/21/21 01:15 73 13 108/64 96 Room Air 11/21/21 01:00 64 11/21/21 00:47 75 8 96 Room Air 11/21/21 00:00 63 12 82/45 94 Room Air 11/20/21 23: 36.4 68 16 87/49 96 Room Air 11/20/21 23:20 95 Room Air 11/20/21 23:02 36.4 72 97 11/20/21 22:15 75 12 97/55 95 Room Air 11/20/21 21:45 73 13 111/66 96 Room Air 11/20/21 21:10 83 11/20/21 21:06 97 Room Air 11/20/21 21:06 36.5 72 18 121/51 97 Room Air 11/20/21 20:50 36.4 76 16 93/66 92 Room Air 11/20/21 17:20 36.4 72 16 78/53 (61) 99 Room Air I & O 11/21/21 07:00 Intake Total 3250 ml Output Total 475 ml Balance 2775 ml Height & Weight Height: 6'2.00" Weight: 220lbs. 0.0oz. 99.064381cn; 16.85 BMI Method:Stated General Appearance: Chronically ill, Thin (Chronically ill), Other (Initially blood pressure 78/50. ) Neck: Full Range of Motion, Normal Inspection Respiratory: No Accessory Muscle Use, No Respiratory Distress Cardiovascular: Regular Rate, Rhythm, Normal Peripheral Pulses Capillary Refill: Less Than 3 Seconds Extremity: Normal Capillary Refill, Normal Inspection Neurologic/Psychiatric: Other (keeps eyes closed, does not talk. ) Skin: Normal Color, Warm/Dry Results Lab Laboratory Tests 11/20/21 17:43 8/22/22 21:22 11/21/21 01:45 11/21/21 03:55 Assessment/Plan Assessment/Plan 1 KARIME SCANLON MD Nov 21, 2021 10:28
[2021-11-21] MEDS ORDERED: MAGN400O7 PO (10:43)
[2021-11-21] MEDS ORDERED: ASPI-999 PO (10:43)
[2021-11-21] MEDS ORDERED: ACET-2267 PO (10:43)
[2021-11-21] MEDS ORDERED: CHOL-34 PO (10:43)
[2021-11-21] MEDS ORDERED: RISP0.253 PO (10:43)
[2021-11-21] MEDS ORDERED: PRAZ1CAP2 PO (10:43)
[2021-11-21] MEDS ORDERED: TMSL.4C PO (10:43)
[2021-11-21] MEDS ORDERED: VNL37.5T PO (10:43)
[2021-11-21] MEDS ORDERED: HALO5TAB PO (10:43)
[2021-11-21] MEDS ORDERED: POTA-51 PO (10:43)
[2021-11-21] MEDS ORDERED: RISP0.5T21 PO (10:43)
[2021-11-21] MEDS ORDERED: ATOR80TA76 PO (10:43)
[2021-11-21] MEDS ORDERED: MELA3TAB39 PO (10:43)
[2021-11-21] MEDS ORDERED: MAGN400T7 PO (10:43)
[2021-11-21] MEDS ORDERED: CYAN-41 PO (10:43)
[2021-11-21] MEDS ORDERED: GABA300C PO (10:43)
[2021-11-21] MEDS ORDERED: ATEN50TA PO (10:43)
--- NOTE | 2021-11-21 10:44 | Diagnostic Imaging Report ---
INDICATION: Dyspnea COMPARISON: 11/20/2021 TECHNIQUE: Single radiograph chest dated 11/21/2021 FINDINGS: Right IJ central venous catheter is stable. The cardiac silhouette is within normal limits in size. No significant pulmonary vascular congestion. Decreased lung volumes. The lungs are clear of focal pulmonary opacity. No pleural effusion. No pneumothorax. No acute osseous abnormality. IMPRESSION: Low lung volumes without superimposed acute cardiopulmonary abnormality. Stable right IJ central venous catheter. Dictated by: Dictated on workstation # [id number]
--- NOTE | 2021-11-21 11:47 | History & Physical-Hospitalist ---
HOMERO REESE 11/21/21 1147: History of Present Illness HPI/Chief Complaint Dario Zhao is a 76y/o M w/ a PMH of dementia and TBI who presented to the ED yesterday due to increased lethargy. Unable to obtain HPI from pt so ED notes were reviewed. [facility] w/ an RN. The RN stated that pt had stopped eating, walking, and talking since 11/17 and this was not normal for him. He then began not responding to verbal stimuli. While in the ED his eyes were closed and his head was down and pt would not interact w/ ED staff or the RN from the [facility]. He is DNR status Source: other (ED notes) Date Seen 11/21/21 Attending Physician Jose Wellington MD PCP Admitting Physician: Juliane Buck DO Attending Physician: Juliane Buck DO Referring Physician Date of Admission Nov 20, 2021 at 19:41 Home Medications & Allergies Home Medications Reviewed patient Home Medication Reconciliation performed by pharmacy medication reconciliations pest control service technician and/or nursing. Patients Allergies have been reviewed. Allergies Allergies Coded Allergies No Known Drug Allergies (Verified06/28/17) Past Ianelpj-Idoybn-Zvpymt Hx Patient Social History Living Status: [facility] Tobacco Use?: No Use of E-Cig and/or Vaping dev: No Substance use?: No Alcohol Use?: No Pt feels they are or have been: No Immunizations Up To Date Date of Influenza Vaccine: Dec 30, 2016 Tetanus Booster (TDap): Unknown Hepatitis A: No Hepatitis B: No Seasonal Allergies Seasonal Allergies: No Current Status Advance Directives: Yes Advance Directive Location: Copy placed in chart Communicates: Verbally Primary Language: South Korean Preferred Spoken Language: South Korean Is interpretation needed?: No Past Medical History Surgeries: Neurological (skull fracture repair) Currently Using CPAP: No Currently Using BIPAP: No High Cholesterol, Hypertension Dementia, Traumatic Brain Injury Sexually Transmitted Disease: No HIV/AIDS: No Gastroesophageal Reflux, Chronic Constipation Arthritis Cataract Loss of Vision: Bilateral Anxiety, Depression Blood Disorders: No Dementia Review of Systems ROS-Unable to Obtain: due to mental status Physical Exam Physical Exam Vital Signs Vital Signs - First Documented 11/20/21 17:20 Temp 36.4 Pulse 72 Resp 16 B/P (MAP) 78/53 (61) Pulse Ox 99 O2 Delivery Room Air Capillary Refill : Less Than 3 Seconds Height, Weight, BMI Height: 6'2.00" Weight: 220lbs. 0.0oz. 99.214111yu; 16.85 BMI Method:Stated General Appearance: Chronically ill, Thin Neck: Non Tender, Supple Respiratory: Lungs Clear, Normal Breath Sounds, No Accessory Muscle Use, No Respiratory Distress Cardiovascular: Regular Rate, Rhythm, No Murmur, Normal Peripheral Pulses Gastrointestinal: Non Tender, Other (stool burden felt on left side) Neurologic/Psychiatric: No Oriented x3, No Normal Mood/Affect Skin: Normal Color, Warm/Dry Lymphatic: No Adenopathy Results Results/Procedures Labs Laboratory Tests 11/20/21 17:43 11/20/21 21:22 11/21/21 01:45 11/21/21 03:55 Patient resulted labs reviewed. Assessment/Plan Admission Diagnosis Hypernatremia Hypotension Leukocytosis Anemia Dementia Constipation Assessment and Plan Hypernatremia -sodium of 164 on admission, currently 160 -given 2 1L boluses of LR, and then was started on NS 175mL/hr -eICU recently ordered 04/02 NS at 150mL/hr -will need to continue to monitor sodium to make sure it does not decrease more than 12mEq in 24 hours Hypotension -likely due to poor oral intake -BP has improved w/ fluids -will continue fluids Leukocytosis -WBC of 12.6 today -given 1 dose of metronidazole and cefepime on admission -continue to monitor Anemia -Hgb of 10.5 today down from 12.9 yesterday -repeat CBC tomorrow Dementia -restart home medications Constipation -abdominal CT done yesterday showed constipation with distal colonic fecal impaction. -given senna and colace DVT prophylaxis: lovenox and SCDS Code status: DNR Diet: general Order placed to move down to 4th floor HEBERJULIANE DO 11/21/212112: History of Present Illness Source: other (ED notes) Exam Limitations: clinical condition Time Seen by a Provider: 10:00 Past Hlnqhhr-Rpsszu-Hywivu Hx Patient Social History Marrital Status: single Past Medical History Surgeries: Neurological (skull fracture repair) High Cholesterol, Hypertension Traumatic Brain Injury Review of Systems Constitutional: see HPI Physical Exam Physical Exam General Appearance: No Apparent Distress, Chronically ill, Thin Respiratory: Lungs Clear Cardiovascular: Regular Rate, Rhythm Neurologic/Psychiatric: Disoriented Assessment/Plan Admission Diagnosis IVF Hospice Admission Status: Inpatient Order (span 2 midnights) Reason for Inpatient Admission: hypernatremia Supervisory-Addendum Brief Verification & Attestation Participated in pt care: history, MDM, physical Personally performed: exam, history, MDM, supervision of care Care discussed with: Medical Student Procedures: n/a Results interpretation: Verified all documentation Verification and Attestation of Medical Student E/M Service A medical student performed and documented this service in my presence. I reviewed and verified all information documented by the medical student and made modifications to such information, when appropriate. I personally performed the physical exam and medical decision making. Juliane Buck, Nov 21, 2021,21:13 HOMERO REESE Nov 21, 2021 11:47 JULIANE BUCK DO Nov 21, 2021 21:13
[2021-11-21] MEDS: 1/2 NS IV SOLUTION 1,000 ML IV SCH ×3 (12:00→20:49)
[2021-11-21] MEDS: D5 NS W/KCL 20 MEQ/L 1,000 ML IV SCH ×2 (12:25→20:24)
--- NOTE | 2021-11-21 12:48 | Occupational Therapy Eval ---
OT Evaluation-General/PLF Medical Diagnosis Admission Date Nov 20, 2021 at 19:41 Medical Diagnosis: hypernatremia/hypotension Onset Date: Nov 20, 2021 Therapy Diagnosis Therapy Diagnosis: reduced adl status Height/Weight Height (Feet): 6 Height (Inches): 2.00 Weight (Pounds): 220 Weight (Ounces): 0.0 Precautions Precautions/Isolations: Fall Prevention, Standard Precautions Referral Physician: Clayton Referral Reason: Evaluation/Treatment Medical History Pertinent Medical History: Dementia, HTN, TBI Current History Pt presents from [place] with decreased appetite and ambulation and increased lethargy. Pt unable to provide any PLOF. Per chart, pt was able to ambulate on his own. Further investigation will be needed to determine level of assist for adls. Reviewed History: Yes Social History Home: [facility] ADL-Prior Level of Function SCALE: Activities may be completed with or without assistive devices. 8-Pnvvondmzh-bnjjsfc completes the activity by him/herself with no assistance from a helper. 5-Set-up or Clean-up Assistance-helper sets up or cleans up; patient completes activity. [place] assists only prior to or following the activity. 4-Supervision or Touching Assistance-helper provides verbal cues and/or touching/steadying and/or contact guard assistance as patient completes activity. Assistance may be provided throughout the activity or intermittently. 3-Partial/Moderate Assistance-helper does LESS THAN HALF the effort. [place] li fts, holds or supports trunk or limbs, but provides less than half the effort. 2-Substantial/Maximal Assistance-helper does MORE THAN HALF the effort. [place] lifts or holds trunk or limbs and provides more than half the effort. 1-Zddqafnos-sxcwjr does ALL the effort. Patient does none of the effort to complete the activity. Or, the assistance of 2 or more helpers is required for the patient to complete the activity. If activity was not attempted, code reason: 7-Patient Refused. 9-Not Applicable-not attempted and the patient did not perform the activity before the current illness, exacerbation or injury. 10-Not Attempted due to Environmental Limitations-(lack of equipment, weather restraints, etc.). 88-Not Attempted due to Medical Conditions or Safety Concerns. Self Care: Unknown Functional Cognition: Unknown OT Current Status Subjective Pt with garbled speech, difficult to understand. Sitter present in room Appearance Pt left supine in bed, sitter present. Mental Status/Objective Patient Orientation: Person, Confused, Unable to Assess Attachments: IV, Oxygen, Telemetry Current Upper Extremity ROM Unable to follow directions Upper Extremity Strength Unable to follow directions ADL-Treatment On/Off Footwear (QC): 1 Supine<>sit: min-mod a. Significant time to initiate. Simplification and visual cues for all commands required. Once sitting to side of bed, Pt was unable to follow any directions. He often cupped hands over face/eyes and would not respond to questions. Assist to initiate/return to bed. Unsure how much patient is actually capable of doing at this time. Education OT Patient Education: Correct positioning, Purpose of tx/functional activities, Safety issues, Transfer techniques Teaching Recipient: Patient Teaching Methods: Demonstration, Discussion Response to Teaching: Unable to Return Demonstration, Unable to Comprehend OT Nurse Orthopedic Goals Nurse Orthopedic Goals Time Frame: Nov 28, 2021 Eating (QC): 4 Oral Hygiene (QC): 4 Toileting Hygiene (QC): 4 Shower/Bathe Self (QC): 3 Upper Body Dressing (QC): 4 Lower Body Dressing (QC): 4 On/Off Footwear (QC): 4 1=Demonstrate adherence to instructed precautions during ADL tasks. 2=Patient will verbalize/demonstrate understanding of assistive devices/modifications for ADL. 3=Patient will improve strength/tolerance for activity to enable patient to perform ADL's. OT Education/Plan Problem List/Assessment Assessment: Decreased Safety Aware, Decreased UE Strength, Impaired Cognition, Impaired Funct Balance, Impaired Self-Care Skills, Restricted Funct UE ROM Discharge Recommendations Plan/Recommendations: Continue POC Therapy Discharge Recommendati: Post Acute OT Target Placement anticipate return to senior care once medically stable. Limited assessment secondary to advanced dementia. Further investigation on true level of performance needed. Treatment Plan/Plan of Care Treatment,Training & Education: Yes Patient would benefit from OT for education, treatment and training to promote independence in ADL's, mobility, safety and/or upper extremity function for ADL's. Plan of Care: ADL Retraining, Caregiver Training, Functional Mobility, Group Exercise/Act as Ind, UE Funct Exercise/Act Treatment Duration: Nov 28, 2021 Frequency: 3 times per week (3-5x/week ) Estimated Hrs Per Day: .25 hour per day Rehab Potential: Guarded Time/GCodes Start Time: 11:53 Stop Time: 12:01 Total Time Billed (hr/min): 8 Billed Treatment Time 1 visit Carmen Freitas OT Nov 21, 2021 12:48
[2021-11-21 20:01] VITALS: BP 98/56
[2021-11-21] MEDS: ENOXAPARIN INJECTION 30 MG/0.3 ML SYR SC SCH (20:23)
[2021-11-22] VITALS: BP 92/55
[2021-11-22 02:24] VITALS: BP 96/58
[2021-11-22 04:00] VITALS: BP 104/58
[2021-11-22] MEDS: D5 NS W/KCL 20 MEQ/L 1,000 ML IV SCH ×2 (05:45→10:34)
[2021-11-22] MEDS: 1/2 NS IV SOLUTION 1,000 ML IV SCH ×2 (05:48→10:34)
[2021-11-22 06:01] LABS: BASOPHILS % (AUTO) 0 % (0-10); EOSINOPHILS # (AUTO) 0.1 10^3/uL (0.0-0.3); EOSINOPHILS % (AUTO) 1 % (0-10); HEMATOCRIT 31 % (40-54); HEMOGLOBIN 9.7 g/dL (13.3-17.7); LYMPHOCYTES # (AUTO) 1.9 10^3/uL (1.0-4.0); LYMPHOCYTES % (AUTO) 16 % (12-44); MEAN CORPUSCULAR HEMOGLOBIN 28 pg (25-34); MEAN CORPUSCULAR HGB CONC 31 g/dL (32-36); MEAN CORPUSCULAR VOLUME 90 fL (80-99); MONOCYTES # (AUTO) 0.9 10^3/uL (0.0-1.0); MONOCYTES % (AUTO) 7 % (0-12); NEUTROPHILS # (AUTO) 9.2 10^3/uL (1.8-7.8); NEUTROPHILS % (AUTO) 76 % (42-75); PLATELET COUNT 147 10^3/uL (130-400); WHITE BLOOD COUNT 12.1 10^3/uL (4.3-11.0)
[2021-11-22 06:30] LABS: ALBUMIN 2.5 GM/DL (3.2-4.5); BILIRUBIN,TOTAL 0.5 MG/DL (0.1-1.0); CALCIUM 7.8 MG/DL (8.5-10.1); CREATININE SERUM 0.79 MG/DL (0.60-1.30); MAGNESIUM 1.5 MG/DL (1.6-2.4); POTASSIUM 3.4 MMOL/L (3.6-5.0); TOTAL PROTEIN 4.9 GM/DL (6.4-8.2)
[2021-11-22 07:04] VITALS: BP 118/62
[2021-11-22] MEDS: DOCUSATE SODIUM 100 MG (COLACE) CAP PO SCH (07:34)
[2021-11-22] MEDS: SENNOSIDES 8.6 MG (SENOKOT) TAB PO SCH (07:36)
--- NOTE | 2021-11-22 09:38 | Physical Therapy Daily Note ---
PT Daily Note-Current Subjective Pt verbaslly unresponsive but follows a combination of verbal and physical cues. Transfers SCALE: Activities may be completed with or without assistive devices. 0-Sbjtpjwxrk-qczulql completes the activity by him/herself with no assistance from a helper. 5-Set-up or Clean-up Assistance-helper sets up or cleans up; patient completes activity. [place] assists only prior to or following the activity. 4-Supervision or Touching Assistance-helper provides verbal cues and/or touching/steadying and/or contact guard assistance as patient completes activity. Assistance may be provided throughout the activity or intermittently. 3-Partial/Moderate Assistance-helper does LESS THAN HALF the effort. [place] lifts, holds or supports trunk or limbs, but provides less than half the effort. 2-Substantial/Maximal Assistance-helper does MORE THAN HALF the effort. [place] lifts or holds trunk or limbs and provides more than half the effort. 0-Pcjjftzvz-psjwbw does ALL the effort. Patient does none of the effort to complete the activity. Or, the assistance of 2 or more helpers is required for the patient to complete the activity. If activity was not attempted, code reason: 7-Patient Refused. 9-Not Applicable-not attempted and the patient did not perform the activity before the current illness, exacerbation or injury. 10-Not Attempted due to Environmental Limitations-(lack of equipment, weather restraints, etc.). 88-Not Attempted due to Medical Conditions or Safety Concerns. Transfer to edge of bed with Moderate assist, sit to stand with Min Assist and cues. Gait Training Ambulate 150ft with FWW and Moderate assist to guide the walker. Ambulate 150ft hand held assist with Min Assist for balance. Assessment Current Status: Fair Progress Pt demonstrated greater safety at Hand held assist for ambulation due to confusion when trying to manage rolling walker. PT Store Receiving Specialist Goals Long-Term Goals PT Long-Term Goals Time Frame: Dec 02, 2021 Roll Left & Right (QC): 4 Sit to Lying (QC): 4 Lying-Sitting on Side/Bed(QC): 4 Sit to Stand (QC): 4 Chair/Tyl-ww-Uwgmd Xfer(QC): 4 Toilet Transfer (QC): 4 Walk 10 feet (QC): 4 Walk 50ft with 2 Turns (QC): 4 Walk 150 ft (QC): 4 PT Plan Treatment/Plan Treatment Plan: Continue Plan of Care Treatment Plan: Bed Mobility, Functional Activity Parminder, Functional Strength, Gait, Safety, Transfers Treatment Duration: Dec 02, 2021 Frequency: 5 times per week Estimated Hrs Per Day: .25 hour per day Time/GCodes Time In: 809 Time Out: 924 Total Billed Treatment Time: 20 Total Billed Treatment visit, gait 20min ALEXX GUTIERREZ PT Nov 22, 2021 09:38
[2021-11-22 11:02] VITALS: BP 93/58
--- NOTE | 2021-11-22 11:15 | Discharge Summary ---
Discharge Summary Hospital Course Was the Problem List Reviewed?: Yes Problems/Dx: (1) Hypotension (2) Weakness Status: Acute (3) Hypernatremia Status: Acute (4) Hypovolemic shock (5) Nausea Hospital Course Date of Admission: Nov 20, 2021 at 19:41 Admission Diagnosis : Family Physician/Provider: Jose Wellington MD Date of Discharge: 11/22/21 Discharge Diagnosis: Hyponatremia, hypovolemic shock, dehydration, acute kidney injury, traumatic brain injury, dementia, failure to thrive Hospital Course: Dario Zhao is a 76y/o M w/ a PMH of dementia and TBI who presented to the ED on 11/20 due to increased lethargy. The pt had stopped eating, walking, and talking since 11/17 and this was not normal for him. He then began not responding to verbal stimuli. In the ED he was found to have hypernatremia and hypotension. His Na+ level was 164 and he was having systolic BPs in the 70s. WBC was also elevated at 12.4. He was given 2 boluses of LR and then was started on NS at 175mL/hr. Given 1 dose of metronidazole and cefepime as well. Abdominal CT done on 11/20 showed constipation with distal colonic fecal impaction. He was admitted to the ICU and eICU was consulted. By 11/21 BP had improved and his Na+ was 160. Started on D5 NS w/ potassium cloride at 100mL/hr and was moved to 4th floor. Treated for constipation w/ senna and colace. Today his sodium was 150 and he was able to eat breakfast without issue. He will be discharged on hospice care. HOMERO REESE Nov 22, 2021 11:31 Labs and Pending Lab Test: Laboratory Tests 11/22/21 05:50: White Blood Count 12.1H, Red Blood Count 3.45L, Hemoglobin 9.7L, Hematocrit 31L, Mean Corpuscular Volume 90, Mean Corpuscular Hemoglobin 28, Mean Corpuscular Hemoglobin Concent 31L, Red Cell Distribution Width 13.6, Platelet Count 147, Mean Platelet Volume 11.0, Immature Granulocyte % (Auto) 0, Neutrophils (%) (Auto) 76H, Lymphocytes (%) (Auto) 16, Monocytes (%) (Auto) 7, Eosinophils (%) (Auto) 1, Basophils (%) (Auto) 0, Neutrophils # (Auto) 9.2H, Lymphocytes # (Auto) 1.9, Monocytes # (Auto) 0.9, Eosinophils # (Auto) 0.1, Basophils # (Auto) 0.0, Immature Granulocyte # (Auto) 0.1, Sodium Level 150H, Potassium Level 3.4L, Chloride Level 121H, Carbon Dioxide Level 22, Anion Gap 7, Blood Urea Nitrogen 19H, Creatinine 0.79, Estimat Glomerular Filtration Rate 92, BUN/Creatinine Ratio 24, Glucose Level 83, Calcium Level 7.8L, Corrected Calcium 9.0, Magnesium Level 1.5L, Total Bilirubin 0.5, Aspartate Amino Transf (AST/SGOT) 15, Alanine Aminotransferase (ALT/SGPT) 17, Alkaline Phosphatase 71, Total Protein 4.9L, Albumin 2.5L Microbiology 11/20/21 MRSA Screen - Final, Complete MRSA not isolated 11/20/21 Blood Culture - Preliminary, Resulted No growth Home Meds Active Reported Tylenol Extra Strength (Acetaminophen) 500 Mg Tablet 500 Mg PO Q6H PRN Haloperidol 5 Mg Tablet 5 Mg PO Q4H PRN Milk of Magnesia (Magnesium Hydroxide) 400 Mg/5 Ml Oral.susp 30 Ml PO UD PRN GIVE WITH WARM PRUNE JUICE IF NO BM AFTER 3 DAYS Magnesium Oxide 400 Mg Tablet 400 Mg PO DAILY Melatonin 3 Mg Tablet 3-6 Mg PO HS TAKES 1 TO 2 (3MG) TABS Vitamin D3 (Cholecalciferol (Vitamin D3)) 25 Mcg (1000 Unit) Tablet 25 Mcg PO DAILY Venlafaxine HCl 37.5 Mg Tab 37.5 Mg PO DAILY Flomax (Tamsulosin HCl) 0.4 Mg Cap 0.4 Mg PO 1700 Prazosin HCl 1 Mg Capsule 1 Mg PO 1700 Potassium Chloride 20 Meq Tablet.er 30 Meq PO 0800,1700 TAKES 1 & (20MEQ) TABS Risperidone 0.25 Mg Tablet 0.25 Mg PO 1200 Risperdal (Risperidone) 0.5 Mg Tablet 0.5 Mg PO 0800,1700 Neurontin (Gabapentin) 300 Mg Capsule 300 Mg PO 0800,1700 Vitamin B-12 (Cyanocobalamin (Vitamin B-12)) 1,000 Mcg Tablet 1,000 Mcg PO DAILY Atorvastatin Calcium 80 Mg Tablet 80 Mg PO Q48H Atenolol 50 Mg Tablet 50 Mg PO DAILY Aspirin 81 Mg Tab.chew 81 Mg PO DAILY Omeprazole 20 Mg Capsule.dr 20 Mg PO DAILY Assessment/Pt Instructions Signed up for hospice Discharge Planning: <30 minutes discharge planning Discharge Physical Examination Vital Signs Vital Signs Date Time Temp Pulse Resp B/P (MAP) Pulse Ox O2 Delivery O2 Flow Rate FiO2 11/22/21 11:02 37.3 72 20 93/58 (70) 99 Room Air General Appearance: No Apparent Distress, WD/WN, Chronically ill, Thin Allergies: Coded Allergies: No Known Drug Allergies (Verified , 06/28/17) Discharge Summary Date of Admission Nov 20, 2021 at 19:41 Date of Discharge Discharge Date: Nov 22, 2021 Admission Diagnosis [facility] ARNULFO BUCK DO Nov 22, 2021 11:15
--- NOTE | 2021-11-22 11:31 | Progress Note ---
HOMERO REESE 11/22/21 1131: Progress Note Hospital course: Dario Zhao is a 76y/o M w/ a PMH of dementia and TBI who presented to the ED on 11/20 due to increased lethargy. The pt had stopped eating, walking, and talking since 11/17 and this was not normal for him. He then began not responding to verbal stimuli. In the ED he was found to have hypernatremia and hypotension. His Na+ level was 164 and he was having systolic BPs in the 70s. WBC was also elevated at 12.4. He was given 2 boluses of LR and then was started on NS at 175mL/hr. Given 1 dose of metronidazole and cefepime as well. Abdominal CT done on 11/20 showed constipation with distal colonic fecal impaction. He was admitted to the ICU and eICU was consulted. By 11/21 BP had improved and his Na+ was 160. Started on D5 NS w/ potassium cloride at 100mL/hr and was moved to 4th floor. T reated for constipation w/ senna and colace. Today his sodium was 150 and he was able to eat breakfast without issue. He will be discharged on hospice care. JULIANE ARNOLD DO 11/22/21 2017: Supervisory-Addendum Brief Verification & Attestation Participated in pt care: history, MDM, physical Personally performed: exam, history, MDM, supervision of care Care discussed with: Medical Student Procedures: n/a Results interpretation: Verified all documentation Verification and Attestation of Medical Student E/M Service A medical student performed and documented this service in my presence. I revie wed and verified all information documented by the medical student and made modifications to such information, when appropriate. I personally performed the physical exam and medical decision making. Juliane Arnold Nov 22, 2021,20:17 HOMERO REESE Nov 22, 2021 11:31 JULIANE ARNOLD DO Nov 22, 2021 20:17
[2021-11-22 15:20] VITALS: BP 93/58
--- NOTE | 2021-11-22 16:17 | Physician Query Clarification ---
Physician Query-General Query to Physician: Clinical Validation Clarification Dr Marvin Arnold Possible Sepsis has been documented in the medical record. After study, has Sepsis been ruled out? If it has been ruled out, please document Sepsis ruled out" in the progress notes and/or discharge summary. 1. Yes/Agreed, Sepsis ruled out/is not clinically valid 2. Not agreed, Sepsis has not been ruled out/is clinically valid* *Please document the clinical evidence supportive of this diagnosis (even if now resolved) in the Progress Notes and Discharge Summary 3. Other, with explanation of the clinical findings 4. Clinically undetermined, no explanation for the clinical findings Additional information: In the setting of hypernatremia, Dementia, HR 72, RR 16, BP 78/53, SpO2 99% sat on room air T 36.4, WBC 12.4, HGB 12.9, Na 164, Cr 1.02, eGFR 76, lactic Acid 2.10 Treatment Day of admission: Gauze lactated Ringer's 2 L, normal saline 1 L, cefepime IV, metronidazole IV In responding to this query, please exercise your independent professional judgment. The purpose of this communication is to more accurately reflect the complexity of your patients condition. The fact that a question is asked does not imply that any particular answer is desired or expected. Thank you for your timely response to this clarification. Kaylyn Knox MSN, RN Clinical Economic Adviser PHYSICIAN RESPONSE: Based on the clinical findings in the record, please respond to the query above on this document as an addendum. Physician Response: Physician Response no sepsis If you have questions please contact: Relief Charge Nurse: Ext: Thank you for your time and cooperation. Clinical Economic Adviser/Relief Charge Nurse This is a permanent part of the medical record KAYLYN KNOX Nov 22, 2021 16:17 ARNULFO ARNOLD DO Nov 22, 2021 17:11
== END 2021-11-22 15:20 | disposition hospice, home (50) | DRG 640 ==
LOC: EDUNIT# 17:07 → ER 17:08 → ICU 19:41 → 4TH 11-21 12:45
PROVIDERS: ADMIT Internal Medicine; ATTEND Internal Medicine
PROC: 02HV33Z Insertion of Infusion Device into Superior Vena Cava, Percutaneous Approach (ICD-10-PCS; principal; 2021-11-20)
DX: E87.0 Hyperosmolality and hypernatremia (principal); R57.1 Hypovolemic shock; N17.9 Acute kidney failure, unspecified; Z68.1 Body mass index [BMI] 19.9 or less, adult; E86.0 Dehydration; I95.9 Hypotension, unspecified; D64.9 Anemia, unspecified; R62.7 Adult failure to thrive; K59.00 Constipation, unspecified; Z66 Do not resuscitate; Z20.822 Contact with and (suspected) exposure to COVID-19; E78.00 Pure hypercholesterolemia, unspecified; I10 Essential (primary) hypertension; F03.90 Unspecified dementia, unspecified severity, without behavioral disturbance, psychotic disturbance, mood disturbance, and anxiety; Z87.820 Personal history of traumatic brain injury; K21.9 Gastro-esophageal reflux disease without esophagitis; H54.3 Unqualified visual loss, both eyes; F41.9 Anxiety disorder, unspecified; F32.A Depression, unspecified
CPT/HCPCS: 36415; 71045; 74176; 80048; 80053; 81000; 83605; 83735; 83880; 83930; 83935; 84100; 84300; 85025; 85610; 87040; 87081; 87636; 96360